=== PATIENT | female | born 1995 | race Caucasian/White ===

== ENCOUNTER 2019-08-13 17:07 | Emergency (ER) | payer MEDICAID ==
[~2019-08-13] VITALS: Ht 167.6 cm; Wt 68.0 kg
[2019-08-13 17:10] VITALS: BP 102/67
[2019-08-13] MEDS ORDERED: TETANUS-DIPTH-ACEL PERTUSSIS 0.5ML SYR Tdap IM ONE (19:30)
[2019-08-13] MEDS ORDERED: cefTRIAXone SOD 1,000 MG VL IM ONE (19:30)
[2019-08-13] MEDS ORDERED: LIDOCAINE 1% HCL (LOCAL ANESTH.) INJ 20ML MDV ONE (19:50)
== END 2019-08-13 20:24 | disposition home or self-care (01) ==
LOC: ER 17:07
DX: S41.111A Laceration without foreign body of right upper arm, initial encounter (principal); S81.012A Laceration without foreign body, left knee, initial encounter; Z87.891 Personal history of nicotine dependence; W54.0XXA Bitten by dog, initial encounter; Y93.89 Activity, other specified; Y92.830 Public park as the place of occurrence of the external cause; Y99.8 Other external cause status
CPT/HCPCS: 90471; 90715; 96372; 99284; J0696; J2001